=== PATIENT | female | born 1970 | race Caucasian/White ===

== ENCOUNTER 2017-02-14 12:30 | Outpatient (CLI) | payer BC ==
--- NOTE | 2017-02-14 18:00 | MRI ---
EXAM: BRAIN AND INTERNAL AUDITORY CANAL MRI 02/14/17 HISTORY: Idiopathic sided right ear hearing loss, starting after Thanksgiving. COMPARISON: None. TECHNIQUE: Brain and internal auditory canal MRI performed with and without intravenous gadolinium administratio n. Multisequential, multiplanar imaging is performed. FINDINGS: BRAIN MRI: The calvarium has a normal T1 marrow signal intensity. Midline brain parenchymal structures are unrem arkable. No brain parenchymal mass, mass effect, or midline shift. Brain volume is age appropriate. Cortical g ray-white matter differentiation is preserved. Ventricles and sulci are patent and symmetric. Central arterial flow voids are maintained. Absent restricted diffusion. Note is made of a partially empty sella. No pathologic enhancement of the brain parenchyma. Mild mucosal thickening of the paranasal sinuses. Adequate mastoid air cell aeration. Symmetric signal intensity of the internal auditory canal and inner structures. No abnormal enhanceme nt. Symmetric signal intensity of the 7th-8th as well as 5th cranial nerve complexes. There is T1 hypointensity with associated T2 hyperintensity and FLAIR hypointensity. Lesion is well c ircumscribed, measuring 1.1 x 0.9 cm. No associated enhancement. Cystic change of a previously aerate d right petrous apex is suspected. IMPRESSION: 1. Unremarkable pre and postcontrast brain MRI. 2. Unremarkable pre and postcontrast MRI internal auditory canals. 3. Probable cyst in the previously aerated right petrous apex. Temporal bone CT is recommended f or better interrogation. POS: [facility]
== END 2017-02-14 12:31 | disposition home or self-care (01) ==
LOC: SCSMRI 12:30
PROVIDERS: ATTEND Specialist
DX: H91.21 Sudden idiopathic hearing loss, right ear (principal)
CPT/HCPCS: 70553

== ENCOUNTER 2017-03-05 09:30 | Outpatient (CLI) | payer BC ==
--- NOTE | 2017-03-05 13:33 | CT ---
TEMPORAL BONES CT: Date: 03/05/17 CLINICAL HISTORY: Right side hearing loss, sudden idiopathic hearing loss. No prior CT imaging available. Reference is made to prior brain MRI dated 02/14/17. FINDINGS: Evaluation of each temporal bone reveals an intact ossicular chain. No middle ear effusion. Intratemp oral course of facial nerve is normal in appearance. The vestibular cochlear apparatus and semicircul ar canals are unremarkable. The vestibular and cochlear aqueducts are of normal caliber. Tympanic mem branes are normal in appearance. Mild left mastoid fluid is present. There is a focal area of nonexpansile lucency involving the medial aspect of the petrous apex which e xtends medially to the sphenoid bone and approximates the posterior wall of the right carotid canal. This corresponds to MRI signal abnormality. No obvious aggressive appearance of the surrounding bone. The anterior wall of this finding is somewhat imperceptible to do the thin plate of bone bounding it s anterior surface, which also forms the posterior wall of the right carotid canal. Posterior margin of this finding does appear intact. There is a small retention cyst laterally within the left maxillary sinus. Mild scattered paranasal s inus mucosal thickening present. IMPRESSION: Nonaggressive appearing lucency approximating the medial right petrous apex to account for MR signal abnormality on preceding MRI on 02/14/17. Finding most likely relates to a benign fluid collection wi thin the petrous apex. This could also relate to an intraosseous cyst at the skull base. The possibi lity of a developing cholesterol granuloma cannot be entirely excluded. Unless clinical symptoms yina ant more urgent imaging follow-up, a 1 year follow-up temporal bones CT should be obtained to re-eval uate and to prove a continued nonaggressive appearance. POS: [facility]
== END 2017-03-05 09:31 | disposition home or self-care (01) ==
LOC: SCSCT 09:30
PROVIDERS: ATTEND Otolaryngology Plastic Surgery within the Head & Neck
DX: H91.21 Sudden idiopathic hearing loss, right ear (principal)
CPT/HCPCS: 70480

== ENCOUNTER 2017-04-24 11:02 | Outpatient (CLI) | payer BC ==
--- NOTE | 2017-04-24 13:14 | RAD ---
FIVE VIEWS OF THE CERVICAL SPINE: Comparison: None. History: Neck pain with numbness in the left hand for a few months. FINDINGS: AP, lateral, open mouth odontoid and flexion/extension views of the cervical spine were performed. Th e patient is status post posterior fusion of C2 and C3. The patient is status post anterior effusion or C6 and C7. The vertebral bodies demonstrate normal height and alignment without fracture or sublux ation. Alignment is unchanged with flexion and extension. Moderate osteophytes are seen in the cervic al spine. IMPRESSION: Post-surgical and degenerative changes of the cervical with unchanged alignment with bending. POS: [facility]
--- NOTE | 2017-04-24 14:30 | MRI ---
CERVICAL SPINE MRI WITHOUT CONTRAST: HISTORY: Cervical disk degeneration. Neck pain with numbness in the left hand x a few months. Previous cervi saqib spine surgery. COMPARISON: None. TECHNIQUE: Cervical spine MRI is performed without intravenous Gadolinium administration. Multisequential, mult iplanar imaging is performed. FINDINGS: There is straightening of normal cervical lordosis with reversal of lordosis centered at the C4-C5 le fely. There is posterior fusion hardware at C1 and C2 with associated metallic susceptibility artifac t. There is also anterior fusion plate with cervical hardware at C6-C7 with associated metallic susc eptibility artifact. Disk prosthesis at C6-C7. There is appropriate T1 marrow signal intensity of t he cervical vertebrae. No fracture. Anterolisthesis of C4 upon C5 is noted. There is mild hyperint ensity at C4 and C5 likely on the basis of degenerative change. Visualized brain parenchyma, cervicomedullary junction, cervical cord, and the upper thoracic cord devlin ve an overall normal size and signal intensity. C2-C3: No significant disk-osteophyte complex. No significant central canal stenosis or foraminal n arrowing. C3-C4: No significant disk-osteophyte complex. No significant central canal stenosis. Foramen are patent. C4-C5: Broad-based disk-osteophyte complex abuts the thecal sac and effaces the ventral subarachnoid space. There is deformity of the cervical cord with at least moderate central canal stenosis. Dege nerative change of bilateral uncovertebral joints results I moderate bilateral foraminal narrowing. C5-C6: Broad-based disk-osteophyte complex abuts the thecal sac and effaces the ventral subarachnoid space. There is deformity of the cervical cord. Mild central canal stenosis. Right neural foramen is patent. Mild left foraminal narrowing. C6-C7: There is no significant osteophyte ridge. No high-grade central canal stenosis. Foramen are patent. C7-T1: No significant disk-osteophyte complex. No significant central canal stenosis. Right neural foramen is patent. Mild left foraminal narrowing. IMPRESSION: Degenerative change and post surgical change of the cervical spine as above. POS: [facility]
== END 2017-04-24 11:03 | disposition home or self-care (01) ==
LOC: TBSIIMAG 11:02
PROVIDERS: ATTEND Neurological Surgery
DX: M50.30 Other cervical disc degeneration, unspecified cervical region (principal); M47.892 Other spondylosis, cervical region; Z98.1 Arthrodesis status
CPT/HCPCS: 72040; 72141

== ENCOUNTER 2017-07-21 06:35 | Day surgery (SDC) | payer BC ==
[2017-07-18 12:50] VITALS: BMI 29.5
[2017-07-21] MEDS ORDERED: Sodium Chloride 0.9% 10 ML ONE (06:40)
[2017-07-21] MEDS ORDERED: CEFAZOLIN/Water 2 GM/20 ML SYRINGE ONE (07:17)
[2017-07-21] MEDS ORDERED: Midazolam HCl 2 mg/2 ml Vial ONE (07:19)
[2017-07-21] MEDS ORDERED: Fentanyl 100 MCG/2 ML VIAL ONE ×4 (07:36→10:31)
[2017-07-21 07:44] LABS: #Eosinphils 0.1 thou/uL (0.0-0.7); #Lymphocytes 2.8 thou/uL (1.20-3.40); #Monocytes 0.5 thou/uL (0.11-0.59); #Neutrophils 4.5 thou/uL (1.40-6.50); %Basophils 0.6 % (0.0-1.0); %Eosinophils 1.6 % (0.0-10.0); %Lymphocytes 35.3 % (21.0-51.0); %Monocytes 6.6 % (0.0-10.0); Hemoglobin 12.8 g/dL (12.0-16.0); Mean Corpuscular Hemoglobin 30.4 pg (27.0-31.0); Mean Corpuscular Volume 92.4 fl (81.0-99.0); Mean Platelet Volume 7.5 fL (7.4-10.4); Platelet Count 299 thou/uL (130-400); RBC Distribution Width 11.2 % (11.5-14.5); Red Blood Cell (RBC) Count 4.19 mill/uL (4.20-5.40)
[2017-07-21 08:39] LABS: Anion Gap 12 mmol/L (10-20); BUN (Urea Nitrogen) 15 mg/dL (7.0-18.7); Calc. Creatinine Clearance 140 mL/min (70-130); Calcium 9.3 mg/dL (7.8-10.44); Carbon Dioxide 24 mmol/L (22-29); Chloride 108 mmol/L (98-107); Estimated GFR-MDRD 88; Glucose 100 mg/dL (70-105); Potassium 3.7 mmol/L (3.5-5.1); Sodium 140 mmol/L (136-145)
[2017-07-21] MEDS ORDERED: Ketorolac Tromethamine 30 MG/ML VIAL ONE (09:46)
--- NOTE | 2017-07-21 10:27 | OP ---
DATE OF PROCEDURE: 07/21/2017 SURGEON: Jone Belcher M.D. HOSPICE MASSAGE THERAPIST: Emerson Lind PROCEDURES: Removal of hardware at C6-7, exploration of spinal fusion at C6-7, anterior cervical dis cectomy and fusion C4-5 and C5-6, interbody arthrodesis, intravertebral biomechanical device, local m orselized autograft, demineralized bone matrix, anterior titanium instrumentation C4-C6. PROCEDURE IN DETAIL: The patient was brought to the operating room and intubated. She was positione d supine in head modest extension on a gel-filled donut. Incision was made in the right precervical area and dissecting medial to the sternocleidomastoid muscle. We identified the anterior cervical sp ine and our level was confirmed by x-ray. We identified the previous plate and removed it without di fficulty. The fusion seemed to be solid at C6-7. Next, distraction was placed across C4-C6 and usin g the operating microscope and microdissection techniques, the discs were completely removed and the spinal cord completely decompressed. The bony endplates were then decorticated for the purpose of ar throdesis and appropriately sized intravertebral biomechanical PEEK device was brought into the field , filled with demineralized bone matrix, local morselized autograft, and tapped into place securely a t C4-5 and C5-6. Next, an anterior plate was brought in the field and secured to C5, and C6 using tw o 14 mm screws at each level. The wound was then extensively irrigated, immaculate hemostasis was se cured, and the wound was closed in anatomic layers over a drain.
[2017-07-21] MEDS ORDERED: Promethazine HCl 12.5 MG SUPP PR PRN (11:18)
[2017-07-21] MEDS ORDERED: Promethazine 25 MG TAB PO PRN (11:18)
[2017-07-21] MEDS ORDERED: diphenhydrAMINE 50 MG/ML VIAL IVP PRN (11:18)
[2017-07-21] MEDS ORDERED: Promethazine HCl 25 MG/ML VIAL IM PRN (11:18)
[2017-07-21] MEDS ORDERED: diphenhydrAMINE 25 MG CAP PO PRN (11:18)
[2017-07-21] MEDS ORDERED: Mag-Al 1200 mg/1200 mg/30 ML UDCUP PO PRN (11:18)
[2017-07-21] MEDS ORDERED: Milk Of Magnesia 30 ML UDCUP PO PRN (11:18)
[2017-07-21] MEDS ORDERED: Ondansetron HCl/PF 4 MG/2 ML Vial IVP PRN (11:20)
[2017-07-21] MEDS ORDERED: Morphine 4 MG/ML VIAL SLOW IVP PRN (11:23)
[2017-07-21] MEDS ORDERED: Dexamethasone 20 MG/5 ML VIAL ONE (13:34)
[2017-07-21] MEDS ORDERED: Ondansetron HCl/PF 4 MG/2 ML Vial ONE (13:34)
[2017-07-21] MEDS ORDERED: PROPOFOL 200 MG/20 ML VIAL ONE (13:34)
[2017-07-21] MEDS: CEFAZOLIN/Water 2 GM/20 ML SYRINGE SLOW IVP SCH (16:02)
[2017-07-21] MEDS: Morphine 4 MG/ML VIAL SLOW IVP PRN ×2 (16:06→20:55)
[2017-07-21] MEDS: tiZANidine HCl 4 MG TAB PO PRN (20:55)
[2017-07-22] MEDS: CEFAZOLIN/Water 2 GM/20 ML SYRINGE SLOW IVP SCH (00:29)
[2017-07-22] MEDS: Morphine 4 MG/ML VIAL SLOW IVP PRN ×3 (04:44→20:26)
--- NOTE | 2017-07-22 07:19 | PRG ---
DATE OF SERVICE: 07/22/2017 The patient is postop day #1 from removal of hardware and C4-5, C5-6 ACDF. MIAN drain was placed intra operatively with 55 mL of output overnight. We will plan to remove the drain and discontinue her IV antibiotics this morning. The patient continues to have pain control issues, which is difficult cons idering her multiple pain medications allergies to [place], Tylenol 3 and tramadol. She is getting ariel taminophen and p.r.n. morphine. She also reports some dysphagia since her surgery. She is able to d rink fluids and swallow pills crushed up at this time, but she has not yet attempted to eat a full me al. She is voiding appropriately. Regarding her dysphagia, we will plan to give her 10 mg of IV Dec adron now. We will continue pain control as well as mobilize and advance the patient's diet.
[2017-07-22] MEDS ORDERED: Dexamethasone 10 MG/ML VIAL SLOW IVP SCH (08:15)
[2017-07-22] MEDS: Cepastat Lozenges 1 LOZ PO PRN ×2 (08:51→16:27)
[2017-07-22] MEDS: tiZANidine HCl 4 MG TAB PO PRN (19:31)
[2017-07-23] MEDS: Morphine 4 MG/ML VIAL SLOW IVP PRN (10:14)
[2017-07-23] MEDS: tiZANidine HCl 4 MG TAB PO PRN (14:13)
[2017-07-23 17:09] VITALS: BP 99/56; TEMP 98.4
== END 2017-07-23 20:15 | disposition home or self-care (01) ==
LOC: SDC 06:35 → UNDOADMOB 10:50 → 3SE 10:50 → UNDODISOB 07-23 20:15 → SDC 07-23 20:15
PROVIDERS: ATTEND Neurological Surgery
PROC: 0RB30ZZ Excision of Cervical Vertebral Disc, Open Approach (ICD-10-PCS; principal; 2017-07-21)
PROC: 0RG2070 Fusion of 2 or more Cervical Vertebral Joints with Autologous Tissue Substitute, Anterior Approach, Anterior Column, Open Approach (ICD-10-PCS; principal; 2017-07-21)
PROC: 0RP104Z Removal of Internal Fixation Device from Cervical Vertebral Joint, Open Approach (ICD-10-PCS; principal; 2017-07-21)
PROC: 0RG20A0 Fusion of 2 or more Cervical Vertebral Joints with Interbody Fusion Device, Anterior Approach, Anterior Column, Open Approach (ICD-10-PCS; principal; 2017-07-21)
DX: M50.321 Other cervical disc degeneration at C4-C5 level (principal); Z88.6 Allergy status to analgesic agent
CPT/HCPCS: 76001; 80048; 85025; 93005; 93010; A4216; C1713; C1776; J1100; J1885; J2250; J2270; J2405; J2704; J3010; J3490

== ENCOUNTER 2017-08-05 11:01 | Outpatient (CLI) | payer BC ==
--- NOTE | 2017-08-05 12:53 | RAD ---
CERVICAL SPINE FOUR VIEWS: 08/05/2017 HISTORY: Cervical radiculopathy. Popping in the neck. Prior surgeries. COMPARISON: 04/24/2017 FINDINGS: Posterior fusion hardware is present at the C2-C3 level. Anterior diskectomy and fusion hardware is present at C4-C5 and C5-C6. Intervertebral disk devices are noted at C4-C5, C5-C6, and C6-C7. There is straightening of the normal cervical lordosis. There is no prevertebral soft tissue swelling. N o evidence for hardware failure is noted. Alignment at the cervicothoracic junction appears within n ormal limits. Open-mouth odontoid view demonstrates a normal appearing dens and C1-2 articulation. There is normal alignment on frontal imaging. There is disk space narrowing with mild anterior osteophyte formation at C2-C3 and at C3-C4. IMPRESSION: Postoperative and degenerative changes within the cervical spine, as described above. POS: [facility]
== END 2017-08-05 11:02 | disposition home or self-care (01) ==
LOC: TBSIIMAG 11:01
PROVIDERS: ATTEND Neurological Surgery
DX: M47.22 Other spondylosis with radiculopathy, cervical region (principal); Z98.890 Other specified postprocedural states
CPT/HCPCS: 72040

== ENCOUNTER 2017-09-11 15:27 | Outpatient (CLI) | payer BC ==
--- NOTE | 2017-09-11 16:14 | RAD ---
CERVICAL SPINE AP AND LATERAL STANDARD 09/11/17 HISTORY: Followup surgery. M40.02. COMPARISON: Radiographs 08/05/17. FINDINGS: ACDF hardware at C4-C6 with facetectomy changes. Posterior spinal fusion hardware C2-3. Open mouth odontoid view is normal. No new acute superimposed fracture or malalignment. IMPRESSION: No evidence for hardware complication. POS: [facility]
== END 2017-09-11 15:28 | disposition home or self-care (01) ==
LOC: TBSIIMAG 15:27
PROVIDERS: ATTEND Neurological Surgery
DX: M48.02 Spinal stenosis, cervical region (principal)
CPT/HCPCS: 72040

== ENCOUNTER 2017-10-14 11:39 | Outpatient (CLI) | payer BC | END 2017-10-14 11:40 | disposition home or self-care (01) | LOC: BICMAMMO 11:39 | PROVIDERS: ATTEND Family Medicine | DX: Z12.31 Encounter for screening mammogram for malignant neoplasm of breast (principal); Z80.3 Family history of malignant neoplasm of breast | CPT/HCPCS: 77063; 77067 ==

== ENCOUNTER 2017-12-02 10:55 | Outpatient (CLI) | payer BC ==
--- NOTE | 2017-12-02 12:11 | RAD ---
CERVICAL SPINE RADIOGRAPHS FOUR VIEWS: 12/02/2017 PROVIDED CLINICAL HISTORY: Follow up surgery. FINDINGS: Postoperative changes of posterior fusion at C2-C3 and ACDF changes from C4 through C6 are demonstrat ed without evidence for hardware loosening or migration. Cervical alignment appears unchanged. No p revertebral soft tissue swelling apparent. The visualized lung apices appear clear. IMPRESSION: Stable examination. POS: [facility]
== END 2017-12-02 10:56 | disposition home or self-care (01) ==
LOC: TBSIIMAG 10:55
PROVIDERS: ATTEND Neurological Surgery
DX: M54.12 Radiculopathy, cervical region (principal); Z98.890 Other specified postprocedural states
CPT/HCPCS: 72040

== ENCOUNTER 2018-03-26 07:58 | Outpatient (CLI) | payer BC ==
--- NOTE | 2018-03-26 13:07 | MRI ---
MRI BRAIN WITH AND WITHOUT CONTRAST MRI AUDITORY CANALS WITH AND WITHOUT CONTRAST: COMPARISON: 02/14/2017. CORRELATION: CT IAC/internal auditory canals 03/05/2017. TECHNIQUE: Brain and internal auditory canal MRI performed with and without intravenous Gadolinium administratio n. Multisequential, multiplanar imaging is performed. FINDINGS: Calvarium has a normal T1 marrow signal intensity. Midline brain parenchymal structures are unremark able. No parenchymal mass, mass effect, or midline shift. Brain volume, age appropriate. Cortical sheikh-wh ite matter differentiation preserved. Ventricles and sulci are patent and symmetric. Central arterial flow voids are maintained. Absent restricted diffusion. No significant T2 or FLAIR white matter hyperintensities. A partially empty sella is once again noted. There is no pathologic enhancement of the brain parenchyma. Mild mucosal disease of paranasal sinuses. Symmetric signal intensity of the 7th/8th cranial nerves as well as the 5th cranial nerves. Addition ally, there is symmetric signal intensity of both internal auditory canals and inner ear structures. Redemonstration of an intrinsically T2 hyperintense, T1 hypointense lesion involving the right aspect of the petrous apex. Currently, this lesion measures 1.4 x 0.7 cm (previously measuring 1.3 x 0.7 c m). No appreciable change in size. There is no evidence of associated osseous enhancement. IMPRESSION: Essentially stable cystic lesion in the right petrous apex, most favorable to be an intraosseous cyst . No appreciable change. POS: [facility]
== END 2018-03-26 07:59 | disposition home or self-care (01) ==
LOC: SCSMRI 07:58
PROVIDERS: ATTEND Otolaryngology Plastic Surgery within the Head & Neck
DX: H93.19 Tinnitus, unspecified ear (principal); M89.9 Disorder of bone, unspecified
CPT/HCPCS: 70553

== ENCOUNTER 2018-11-06 15:27 | Outpatient (CLI) | payer BC ==
--- NOTE | 2018-11-06 16:34 | MMO ---
Bilateral MAMMO Bilat Screen [facility]. CLINICAL HISTORY: Patient is 48 years old and is seen for screening. The patient has the following family history of breast cancer: maternal grandmother. The patient has no personal history of cancer. VIEWS: The views performed were: bilateral craniocaudal with tomosynthesis and bilateral mediolateral oblique with tomosynthesis. FILMS COMPARED: The present examination has been compared to prior imaging studies performed at [facility] on 05/13/2014, 05/18/2014, 12/18/2015 and 10/14/2017. This study has been interpreted with the assistance of computer-aided detection. MAMMOGRAM FINDINGS: There are scattered fibroglandular densities. There are benign appearing calcifications seen in both breasts. There are no suspicious masses, suspicious calcifications, or new areas of architectural distortion. IMPRESSION: THERE IS NO MAMMOGRAPHIC EVIDENCE OF MALIGNANCY. A ROUTINE FOLLOW-UP MAMMOGRAM IN 1 YEAR IS RECOMMENDED. THE RESULTS OF THIS EXAM WERE SENT TO THE PATIENT. ACR BI-RADS Category 2 - Benign finding MAMMOGRAPHY NOTE: 1. A negative mammogram report should not delay a biopsy if a dominant of clinically suspicious mass is present. 2. Approximately 10% to 15% of breast cancers are not detected by mammography. 3. Adenosis and dense breasts may obscure an underlying neoplasm. Reported by: SHRAVAN LU MD Electonically Signed: [id number]
== END 2018-11-06 15:28 | disposition home or self-care (01) ==
LOC: BICMAMMO 15:27
PROVIDERS: ATTEND Obstetrics & Gynecology
DX: Z12.31 Encounter for screening mammogram for malignant neoplasm of breast (principal)
CPT/HCPCS: 77063; 77067

== ENCOUNTER 2019-05-04 10:04 | Outpatient (CLI) | payer BC ==
--- NOTE | 2019-05-04 11:33 | MRI ---
BRAIN MRI WITH AND WITHOUT CONTRAST: HISTORY: Right petrous bone mass. Followup imaging. Previously reported cyst. COMPARISON: 03/26/2018. CORRELATION: CT IAC/temporal bone 03/05/2017. FINDINGS: Hemorrhage: No parenchymal hemorrhage. No extraaxial hematoma. Calvarium: Appropriate T1 marrow signal intensity. Midline brain parenchyma: Unremarkable. Cerebrum:No parenchymal mass, mass effect or midline shift. Brain volume, age-appropriate. Cortical g ray-white matter differentiation is preserved. No significant T2 or FLAIR white matter hyperintensities. Note is made of a partially empty sella. Ventricles: No evidence of hydrocephalus. Sinuses and mastoid air cells: Adequate aeration. Diffusion: Central arterial flow is maintained. Absent restricted diffusion. Postcontrast images: No pathologic enhancement of the brain parenchyma. Skull base: Redemonstration of a T1 hypointense, T2 hyperintense lesion centered in the right aspect of the petrous apex. Thin section T2-weighted images demonstrate extension into the region of the right foramen ovale. Postcontrast images do not demonstrate any abnormal enhancement with regards to the right 5th cranial nerve complex. However, there does appear to be peripheral enhancement at the level of foramen ovale, similar to the contralateral side. The component involving the right petrous bone does not demonstrate enhancement. IMPRESSION: 1. No pathologic enhancement the of the brain parenchyma. 2. Absent restricted diffusion. No acute infarct. 3. Redemonstration of a predominantly cystic lesion centered in the right petrous apex. Thin section images better demonstrate extension into the right foramen ovale. In retrospect, there was extension into the right foramen ovale with stable peripheral enhancement, nonspecific. There is danyell lar enhancement involving the contralateral side. No obvious enhancement with regards to the 5th cranial nerve complex. 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
== END 2019-05-04 10:05 | disposition home or self-care (01) ==
LOC: SCSMRI 10:04
PROVIDERS: ATTEND Otolaryngology Plastic Surgery within the Head & Neck
DX: R22.0 Localized swelling, mass and lump, head (principal); G93.89 Other specified disorders of brain
CPT/HCPCS: 70553

== ENCOUNTER 2020-08-25 15:50 | Outpatient (CLI) | payer BC | END 2020-08-25 15:51 | disposition home or self-care (01) | LOC: SCSRAD 15:50 | PROVIDERS: ATTEND Family Medicine | DX: M72.2 Plantar fascial fibromatosis (principal) ==

== ENCOUNTER 2022-01-21 14:33 | Outpatient (CLI) | payer BC | END 2022-01-21 14:34 | disposition home or self-care (01) | LOC: BICMAMMO 14:33 | PROVIDERS: ATTEND Obstetrics & Gynecology | DX: Z12.31 Encounter for screening mammogram for malignant neoplasm of breast (principal); M81.0 Age-related osteoporosis without current pathological fracture; M85.80 Other specified disorders of bone density and structure, unspecified site; Z80.3 Family history of malignant neoplasm of breast | CPT/HCPCS: 77063; 77067; 77080 ==

== ENCOUNTER 2022-08-21 11:18 | Outpatient (CLI) | payer BC | END 2022-08-21 11:19 | disposition home or self-care (01) | LOC: SCSMRI 11:18 | PROVIDERS: ATTEND Nurse Practitioner Family | DX: M25.551 Pain in right hip (principal); M67.951 Unspecified disorder of synovium and tendon, right thigh; M76.9 Unspecified enthesopathy, lower limb, excluding foot; S76.011A Strain of muscle, fascia and tendon of right hip, initial encounter ==

== ENCOUNTER 2022-10-17 16:22 | Outpatient (CLI) | payer BC | END 2022-10-17 16:23 | disposition home or self-care (01) | LOC: SCSRAD 16:22 | PROVIDERS: ATTEND Family Medicine | DX: R06.00 Dyspnea, unspecified (principal) | CPT/HCPCS: 71046 ==

== ENCOUNTER 2025-01-27 15:37 | Outpatient (CLI) | payer BC, SELFPAY | END 2025-01-27 15:38 | disposition home or self-care (01) | LOC: BICMAMMO 15:37 | PROVIDERS: ATTEND Nurse Practitioner Family | DX: Z12.31 Encounter for screening mammogram for malignant neoplasm of breast (principal); Z80.3 Family history of malignant neoplasm of breast | CPT/HCPCS: 77063; 77067 ==